=== PATIENT | male | born 1935 | race Caucasian/White ===

== ENCOUNTER 2018-08-30 20:55 | Emergency (ER) | payer MEDICARE, OTHER ==
--- NOTE | 2018-08-30 21:25 | EDM.PDOC ---
ED HPI GENERAL MEDICAL PROBLEM - General Chief Complaint: General Stated Complaint: COUGHING UP BLOOD Time Seen by Provider: 08/30/18 21:20 Source of Information: Reports: Patient History Limitations: Reports: No Limitations - History of Present Illness INITIAL COMMENTS - FREE TEXT/NARRATIVE: 83-year-old male presents the ED with his . Chief complaint is recurrent hemoptysis since 1800 hrs. today. He's coughing up about it tablespoon of blood each time he coughs. Patient is chronically anticoagulated with Plavix and Coumadin. 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 He had a terrible nosebleed about 6 weeks ago which they finally got stopped. He has not noticed any blood in his stool or urine. Her feel lightheaded. Coughing only started today. Does feel a little bit short of breath. states he is due for his PT/INR checkup as it's been about a month. Onset: Today Onset Date: 08/30/18 Onset Time: 18:00 Duration: Hour(s): Location: Reports: Chest (Recurrent hemoptysis for the last 3-1/2 hours.) Quality: Reports: Other Severity: Moderate (Paroxysmal cough with hemoptysis) Improves with: Reports: None Worsens with: Reports: None Context: Denies: Activity, Exercise, Lifting, Sick Contact, Trauma Associated Symptoms: Reports: Cough, Shortness of Breath (Mild.). 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 (see below) (Only his regular medications nothing extra) - Related Data Allergies Allergy/AdvReac Type Severity Reaction Status Date / Time Penicillins Allergy Rash Verified 10/13/13 22:48 CDT Home Meds: Home Meds Simvastatin [Zocor] 40 mg PO BEDTIME 10/13/13 [History] Warfarin [Coumadin] 5 mg PO DAILY 10/13/13 [History] Clopidogrel [Plavix] 75 mg PO DAILY 08/31/18 [History] Doxycycline [Vibramycin] 100 mg PO BID 08/31/18 [History] Dulaglutide [Trulicity] 0.75 mg SUBCUT WEEKLY 08/31/18 [History] Finasteride [Proscar] 5 mg PO DAILY 08/31/18 [History] Insulin Glarg,Human.Rec.Analog [Lantus Solostar] 15 units SUBCUT DAILY 08/31/18 [History] Isosorbide Mononitrate [Imdur] 60 mg PO DAILY 08/31/18 [History] Torsemide [Demadex] 20 mg PO DAILY 08/31/18 [History] hydrALAZINE [Apresoline] 25 mg PO DAILY 08/31/18 [History] Past Medical History HEENT History: Reports: None, Hard of Hearing (Wears bilateral hearing aids.) Cardiovascular History: Reports: Heart Failure, High Cholesterol, Hypertension, RI, Stents (Has 7 stents in total.) Respiratory History: Reports: None, COPD Gastrointestinal History: Reports: None Genitourinary History: Reports: Renal Disease Other Genitourinary History: 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 Left leg remains more swollen than the right.) Immunologic History: Reports: None Oncologic (Cancer) History: Reports: None - Infectious Disease History Infectious Disease History: Reports: Chicken Pox, Measles, Mumps, Other (See Below) Other Infectious Disease History: childhood - Past Surgical History Head Surgeries/Procedures: Reports: None HEENT Surgical History: Reports: Other (See Below) Other HEENT Surgeries/Procedures: nasal surgery Cardiovascular Surgical History: Reports: Coronary Artery Stent, Other (See Below) Other Cardiovascular Surgeries/Procedures: stents x7 Respiratory Surgical History: Reports: None GI Surgical History: Reports: Appendectomy Male Surgical History: Reports: Circumcision Endocrine Surgical History: Reports: None Neurological Surgical History: Reports: None Musculoskeletal Surgical History: Reports: Other (See Below) Other Musculoskeletal Surgeries/Procedures:: knee repair x3. Oncologic Surgical History: Reports: None Social & Family History - Family History Family Medical History: Noncontributory - Tobacco Use Smoking Status *Q: Former Smoker Used Tobacco, but Quit: Yes Month/Year Tobacco Last Used: 20 yrs - Caffeine Use Caffeine Use: Reports: Coffee, Soda, Tea - Recreational Drug Use Recreational Drug Use: No - Living Situation & Occupation Living situation: Reports: Occupation: Retired ED ROS GENERAL - Review of Systems Review Of Systems: See Below Constitutional: Denies: Fever, Chills, Malaise, Weakness, Fatigue, Decreased Appetite, Weight Loss HEENT: Reports: Other (After having nasal septal surgery he has a known large hole in his nasal septum.) Respiratory: Reports: Shortness of Breath, Cough, Hemoptysis. Denies: Wheezing , Pleuritic Chest Pain Cardiovascular: Reports: Blood Pressure Problem (Mild hypertension controlled with medication), Dyspnea on Exertion (Chronic lower extremity edema worse in the left side as compared to the right), Edema. Denies: Chest Pain, Claudication, Lightheadedness, Orthopnea, Palpitations Endocrine: Reports: Fatigue (Sleeps a lot during the day but hasn't slept at night for the last couple of nights.) GI/Abdominal: Denies: Abdominal Pain, Anorexia, Black Stool, Bloody Stool, Constipation, Diarrhea, Decreased Appetite, Difficulty Swallowing, Distension, Flatus, Hematemesis : Reports: Frequency, Other (Usually nocturia 2 or 3) Musculoskeletal: Reports: Joint Pain (Has had his right knee replaced 3.) Skin: Reports: Other (He has venous stasis dermatitis in his left upper extremity. Venous stasis dermatitis both lower extremities.) Neurological: Reports: No Symptoms, Difficulty Walking (Due to arthritis and knee replacements.). 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 This occurred postop septorhinoplasty) Throat/Mouth: Normal Inspection, Normal Lips, Normal Oropharynx. No: Normal Teeth Head: Atraumatic, Normocephalic Neck: Normal Inspection, Limited Range of Motion (Crepitus with rotation.). No : Full Range of Motion, Carotid Bruit, Lymphadenopathy (L), Lymphadenopathy (R) Respiratory/Chest: Respiratory Distress (Mild tachypnea at rest 20/m with O2 sats of 90% 5% on room air), Decreased Breath Sounds (Wheezing from both posterior lower lung calle. Specimen was to the lower 30% of lung calle bilaterally compatible with COPD.), Wheezing, Other. No: Lungs Clear, Normal Breath Sounds, No Accessory Muscle Use Cardiovascular: Regular Rate, Rhythm, No Gallop, No Murmur, No Rub, Other ( Heart sounds are difficult to hear due to the bubbling and gurgling in his anterior chest.). No: Normal Peripheral Pulses Peripheral Pulses: 1+: Posterior Tibial (L), Posterior Tibial (R), Dorsalis Pedis (L), 4+: Dorsalis Pedis (R) GI/Abdominal: Normal Bowel Sounds, Soft, Non-Tender, No Organomegaly, No Abnormal Bruit, No Mass, Pelvis Stable, Other (Moderately obese.) Back Exam: No: Full Range of Motion, CVA Tenderness (L), CVA Tenderness (R) Extremities: Other (He has deep blue discoloration to his entire left forearm from recurrent bleeding under the skin. Stasis dermatitis both lower extremities. He has an AV fistula in his right medial elbow lower arm area with a palpable thrill barely was on dialysis for about 5 months and kidneys recovered enough to be off dialysis..) Neurological: Alert, Oriented, CN II-XII Intact, Normal Cognition Psychiatric: Normal Affect, Normal Mood Skin Exam: Warm, Dry, Intact, Normal Color, No Rash EKG INTERPRETATION EKG Date: 08/30/18 Time: 21:30 Rhythm: NSR Rate (Beats/Min): 75 [place]: LAD-Left [place] Deviation (Mild at -1.) P-Wave: Enlarged (Left atrial hypertrophy pattern) QRS: Other (Early R-wave transition consider right ventricular hypertrophy/ septal hypertrophy pattern. 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.) ST-T: Normal QT: Normal EKG Interpretation Comments: Abnormal ECG Course - Vital Signs Last Recorded V/S: Last Vital Signs Temp 36.2 C 08/31/18 00:21 Pulse 70 08/31/18 00:21 Resp 18 08/31/18 00:21 BP 121/61 08/31/18 00:21 Pulse Ox 95 08/30/18 21:12 - Orders/Labs/Meds Orders: Active Orders 24 hr Category Date Time Status EKG Documentation Completion [RC] STAT Care 08/30/18 21:21 Active Chest wo Cont [CT] Stat Exams 08/30/18 21:21 Taken Labs: Laboratory Tests 08/30/18 08/30/18 08/30/18 Range/Units 21:35 21:35 21:35 WBC 7.86 (4.23-9.07) K/mm3 RBC 3.69 L (4.63-6.08) M/mm3 Hgb 11.2 L (13.7-17.5) gm/L Hct 34.7 L (40.1-51.0) % MCV 94.0 H (79.0-92.2) fl MCH 30.4 (25.7-32.2) pg MCHC 32.3 (32.2-35.5) g/dl RDW Std Deviation 53.8 H (35.1-43.9) fL Plt Count 160 L (163-337) K/mm3 MPV 12.6 H (9.4-12.3) fl Neutrophils % (Manual) 87 H (40-60) % Band Neutrophils % 0 (0-10) % Lymphocytes % (Manual) 8 L (20-40) % Atypical Lymphs % 0 % Monocytes % (Manual) 5 (2-10) % Eosinophils % (Manual) 0 L (0.8-7.0) % Basophils % (Manual) 0 L (0.2-1.2) Platelet Estimate Adequate RBC Morph Comment Normal PT 37.4 H (9.5-12.1) SECONDS INR 3.52 APTT 45 H (24-31) SECONDS Sodium 141 (136-145) mEq/L Potassium 4.5 (3.5-5.1) mEq/L Chloride 107 (98-107) mEq/L Carbon Dioxide 22 (21-32) mEq/L Anion Gap 16.5 H (5-15) BUN 52 H (7-18) mg/dL Creatinine 4.3 H (0.7-1.3) mg/dL Est Cr Clr Drug Dosing 12.38 mL/min Estimated GFR (MDRD) 13 (>60) mL/min BUN/Creatinine Ratio 12.1 L (14-18) Glucose 337 H (83-115) mg/dL Calcium 8.3 L (8.5-10.1) mg/dL Magnesium 1.9 (1.8-2.4) mg/dl Total Bilirubin 0.3 (0.2-1.0) mg/dL AST 22 (15-37) U/L ALT 20 (16-63) U/L Alkaline Phosphatase 72 (46-116) U/L Troponin I 0.024 (0.00-0.056) ng/mL C-Reactive Protein < 0.2 (<1.0) mg/dL NT-Pro-B Natriuret Pep (0-450) pg/mL Total Protein 6.2 L (6.4-8.2) g/dl Albumin 2.7 L (3.4-5.0) g/dl Globulin 3.5 gm/dL Albumin/Globulin Ratio 0.8 L (1-2) Blood Type 08/30/18 08/30/18 Range/Units 21:35 21:35 WBC (4.23-9.07) K/mm3 RBC (4.63-6.08) M/mm3 Hgb (13.7-17.5) gm/L Hct (40.1-51.0) % MCV (79.0-92.2) fl MCH (25.7-32.2) pg MCHC (32.2-35.5) g/dl RDW Std Deviation (35.1-43.9) fL Plt Count (163-337) K/mm3 MPV (9.4-12.3) fl Neutrophils % (Manual) (40-60) % Band Neutrophils % (0-10) % Lymphocytes % (Manual) (20-40) % Atypical Lymphs % % Monocytes % (Manual) (2-10) % Eosinophils % (Manual) (0.8-7.0) % Basophils % (Manual) (0.2-1.2) Platelet Estimate RBC Morph Comment PT (9.5-12.1) SECONDS INR APTT (24-31) SECONDS Sodium (136-145) mEq/L Potassium (3.5-5.1) mEq/L Chloride (98-107) mEq/L Carbon Dioxide (21-32) mEq/L Anion Gap (5-15) BUN (7-18) mg/dL Creatinine (0.7-1.3) mg/dL Est Cr Clr Drug Dosing mL/min Estimated GFR (MDRD) (>60) mL/min BUN/Creatinine Ratio (14-18) Glucose (83-115) mg/dL Calcium (8.5-10.1) mg/dL Magnesium (1.8-2.4) mg/dl Total Bilirubin (0.2-1.0) mg/dL AST (15-37) U/L ALT (16-63) U/L Alkaline Phosphatase (46-116) U/L Troponin I (0.00-0.056) ng/mL C-Reactive Protein (<1.0) mg/dL NT-Pro-B Natriuret Pep 1323 H (0-450) pg/mL Total Protein (6.4-8.2) g/dl Albumin (3.4-5.0) g/dl Globulin gm/dL Albumin/Globulin Ratio (1-2) Blood Type A POSITIVE - Radiology Interpretation Free Text/Narrative:: 83-year-old male presents to the ED with akhil hemoptysis coughing up approximately a tablespoon of blood each time he coughs since 1800 hrs. today. 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 He does not take aspirin. No other sources of bleeding that are evident. PT/INR has not been checked for about a month. On auscultation he has gurgling bubbling respirations in both upper anterior lobes. The lower lobes contain bilateral expiratory wheezes with decreased air entry to the lower 30% of lung calle bilaterally. Plan will be to CT his chest without contrast. Patient has very poor kidney function by history. Labs to be done to include PT/INR. - Re-Assessments/Exams Free Text/Narrative Re-Assessment/Exam: 08/30/18 22:15 Labs reveal a normal white count at 7.86 with 87% neutrophils and no band cells reported. Hemoglobin is slightly low 11.2 with hematocrit of 34.7. MCV is 94.0 mild the elevated. Platelet counts 160,000. PT is 37.4 with an INR of 3.52.. PTT is also elevated at 45. Sodium 141 with a potassium of 4.5. Chloride 107 with a bicarbonate 22. Anion gap is mildly elevated at 16.5. BUN is 52 with a creatinine of 1.3 GFR is down to 13. Patient has stage V renal insufficiency. Glucose is 337. Calcium is 8.3. Magnesium is 1.9. Bilirubin is 0.3. AST is 22 with an ALT of 20. Alk phosphatase is 72. Troponin I is less than 0.024. C-reactive protein is less than 0.2. BNP is elevated at 1000 323. Total protein is 6.2. Albumin is 2.7. 08/30/18 22:30 CT of the chest reveals marked cardiomegaly. Reveals diffuse groundglass appearance to both lower lobes and right middle lobe of the lung suggesting that he has bled bilaterally. This suggests that the bleeding probably came from somewhere in the trachea and was likely precipitated by coughing. He has moderate cardiomegaly. Thirdly large fat pad surrounding the heart with no evidence of pericardial effusion. 08/30/18 23:20: I have spoken with the air export coordinator Dr Richmond at [facility] in [place] and he agrees that the patient should be transferred to their institution in case he continues to have further pulmonary hemorrhage. He deferred admission to the hospitalist who is . I did discuss the case with Dr. Joseph as well. He is accepted care but prefers the patient be seen first through the ED. The patient will be given 1 unit of fresh frozen plasma en route to [place]. He is in mild congestive heart failure at this time. Saline running at 75 mils per hour. He will be given Lasix 40 mg IV about 10 minutes outside of [place] when the fresh frozen plasma unit has been infused. Suggest checking his PT/INR in 6 hours time to see if he will need a second unit of fresh frozen plasma to bring his INR to less than 1.7. Departure - Departure Time of Disposition: 00:34 Disposition: DC/Tfer to Acute Hospital 02 Condition: Fair Clinical Impression: Major hemoptysis, Chronic renal insufficiency, stage V, Supratherapeutic INR Coronary artery disease Qualifiers: Coronary Disease-Associated Artery/Lesion type: unspecified vessel or lesion type [place] vs. transplanted heart: [place] heart Associated angina: without angina Qualified Code(s): I25.10 - Atherosclerotic heart disease of [place] coronary artery without angina pectoris Congestive heart failure Qualifiers: Heart failure type: unspecified Heart failure chronicity: acute on chronic Qualified Code(s): I50.9 - Heart failure, unspecified - Discharge Information *PRESCRIPTION DRUG MONITORING PROGRAM REVIEWED*: Not Applicable *COPY OF PRESCRIPTION DRUG MONITORING REPORT IN PATIENT [place]: Not Applicable Referrals: PCP,Not In Area [Primary Care Provider] - Forms: ED Department Discharge Additional Instructions: Patient transferred to [facility] in [place] due to fairly major involvement of spontaneous hemoptysis this evening with coughing. And some infective process. Patient on CT has groundglass appearance of blood within both lower lobes of the lung as well as the right middle lobe of the lung. Us suggest a fairly extensive bleed likely from the trachea. He had no active bleeding while in the ED. He had been coughing with 14-15 tablespoons of blood coming up in the 3 hours prior to coming to the ED. Patient has multiple medical comorbidities including severe coronary artery disease. Severe renal insufficiency stage V. Mild anemia. Supratherapeutic INR. He was transferred in case he needs repeat emergent bronchoscopy for further pulmonary hemorrhage. - My Orders Last 24 Hours: My Active Orders 08/30/18 21:21 EKG Documentation Completion [RC] STAT Chest wo Cont [CT] Stat - Assessment/Plan Last 24 Hours: My Active Orders 08/30/18 21:21 EKG Documentation Completion [RC] STAT Chest wo Cont [CT] Stat
--- NOTE | 2018-08-31 15:51 | CT ---
CT chest Technique: Multiple axial sections through the chest were obtained. Intravenous contrast was not utilized. Comparison: No prior chest x-ray. Findings: Increased density identified within both lung bases as well as right middle lobe. Small normal-appearing lymph nodes are seen within the mediastinum. Coronary artery calcification as well as coronary artery stents are present. Small portion of the visualized upper abdominal structures appear within normal limits. Heart is mildly enlarged. Incidental bilateral gynecomastia is noted. Bone window settings were reviewed which show scattered degenerative change within the spine. Impression: 1. Increased density within both lung bases and within the right middle lobe. Differential includes alveolar hemorrhage, given the history of hemoptysis. If patient has infectious symptoms, pneumonia is also within the differential. 2. Other incidental findings as described above. Diagnostic code #5 I agree with preliminary report from [facility], finalized on 08/30/18, 11:45 PM Central Time
== END 2018-08-31 00:30 ==
LOC: JD.ED 20:55
DX: R04.2 Hemoptysis (principal); I25.10 Atherosclerotic heart disease of native coronary artery without angina pectoris; I13.0 Hypertensive heart and chronic kidney disease with heart failure and stage 1 through stage 4 chronic kidney disease, or unspecified chronic kidney disease; E11.22 Type 2 diabetes mellitus with diabetic chronic kidney disease; N18.4 Chronic kidney disease, stage 4 (severe); I50.9 Heart failure, unspecified; Z87.891 Personal history of nicotine dependence; I25.2 Old myocardial infarction; J44.9 Chronic obstructive pulmonary disease, unspecified; E78.00 Pure hypercholesterolemia, unspecified; Z79.899 Other long term (current) drug therapy; Z88.0 Allergy status to penicillin
CPT/HCPCS: 36415; 36430; 71250; 80053; 83735; 83880; 84484; 85007; 85027; 85610; 85730; 86140; 86900; 86901; 93005; 99285; P9017